=== PATIENT | female | born 1980 | race Caucasian/White ===

== ENCOUNTER 2016-04-29 20:04 | Emergency (ER) | payer OTHER ==
[2016-04-29 20:08] VITALS: TEMP 98.3; BMI 22.4
[2016-04-29 21:01] VITALS: BP 139/112; PULSE 58
--- NOTE | 2016-04-29 21:16 | PDOC ---
History of Present Illness - General Chief Complaint: Nausea/Vomiting Stated Complaint: PANIC ATTACK Time Seen by Provider: 04/29/16 20:09 History Source: Patient Exam Limitations: No Limitations - History of Present Illness Travel History: No Timing/Duration: reports: intermittent Quality: reports: cramping Abdominal Pain Onset Location: reports: RLQ, LLQ Pain Radiation: reports: no radiation Past History - Travel Traveled outside of the country in the last 30 days: No Close contact w/someone who was outside of country & ill: No - Past Medical History Allergies/Adverse Reactions: Allergies Allergy/AdvReac Type Severity Reaction Status Date / Time No Known Allergies Allergy Verified 04/29/16 20:05 Home Medications: Ambulatory Orders NK [No Known Home Medication] 04/29/16 - Psycho/Social/Smoking Cessation Hx Suicidal Ideation: No Smoking History: Never smoked Abd/GI Specific PMHX - Complaint Specific PMHX Colitis: No Diverticulitis: No Gall Bladder Disease: No GERD: No Review of Systems - Review of Systems Able to Perform ROS?: Yes Comments:: 04/29/16 21:11 CONSTITUTIONAL: Absent: fever, chills, diaphoresis, generalized weakness, malaise, loss of appetite HEENT: Absent: rhinorrhea, nasal congestion, throat pain, throat swelling, difficulty swallowing, mouth swelling, ear pain, eye pain, visual Changes CARDIOVASCULAR: Absent: chest pain, loss of consciousness, palpitations, irregular heart rate, peripheral edema RESPIRATORY: Absent: cough, shortness of breath, dyspnea with exertion, orthopnea, wheezing, stridor, hemoptysis GASTROINTESTINAL: generalized abd pain Absent: abdominal distension, nausea, vomiting, diarrhea, constipation, melena, hematochezia GENITOURINARY: Absent: dysuria, frequency, urgency, hesitancy, hematuria, flank pain, genital pain MUSCULOSKELETAL: Absent: myalgia, arthralgia, joint swelling SKIN: Absent: rash, itching, pallor HEMATOLOGIC/IMMUNOLOGIC: Absent: easy bleeding, easy bruising, lymphadenopathy, frequent infections ENDOCRINE: Absent: unexplained weight gain, unexplained weight loss, heat intolerance, cold intolerance NEUROLOGIC: Absent: headache, focal weakness or paresthesias, dizziness, unsteady gait, seizure, mental status changes, bladder or bowel incontinence PSYCHIATRIC: Absent: anxiety, depression, suicidal or homicidal ideation, hallucinations. Is the patient limited German proficient: No *Physical Exam - Vital Signs Last Vital Signs Temp Pulse Resp BP Pulse Ox 98.3 F 58 L 20 139/112 100 04/29/16 20:06 04/29/16 20:28 04/29/16 20:28 04/29/16 20:28 04/29/16 20:28 - Physical Exam Comments: 04/29/16 21:11 GENERAL: Well developed, well nourished. Awake and alert. No acute distress. HEENT: Normocephalic, atraumatic. PERRLA, EOMI. No conjunctival pallor. Sclera are non- icteric. Moist mucous membranes. Oropharynx is clear. NECK: Supple. Full ROM. No JVD. Carotid pulses 2+ and symmetric, without bruits. No thyromegaly. No lymphadenopathy. CARDIOVASCULAR: Regular rate and rhythm. No murmurs, rubs, or gallops. Distal pulses are 2+ and symmetric. PULMONARY: No evidence of respiratory distress. Lungs clear to auscultation bilaterally. No wheezing, rales or rhonchi. ABDOMINAL: generalized abd pain Soft. Non-distended. No rebound or guarding. No organomegaly. Normoactive bowel sounds. MUSCULOSKELETAL Normal range of motion at all joints. No bony deformities or tenderness. No CVA tenderness. EXTREMITIES: No cyanosis. No clubbing. No edema. No calf tenderness. SKIN: Warm and dry. Normal capillary refill. No rashes. No jaundice. NEUROLOGICAL: Alert, awake, appropriate. Cranial nerves 2-12 intact. No deficits to light touch and temperature in face, upper extremities and lower extremities. No motor deficits in the in face, upper extremities and lower extremities. Normoreflexic in the upper and lower extremities. Normal speech. Toes are down- going bilaterally. Gait is normal without ataxia. PSYCHIATRIC: Cooperative. Good eye contact. Appropriate mood and affect. ED Treatment Course - LABORATORY CBC & Chemistry Diagram: 04/29/16 21:23 04/29/16 21:23 Progress Note - Progress Note Progress Note: 36-year-old female presents to the emergency department complaining of lower abdominal pain with nausea /vomiting and anorexia 2 days. Pain is described as 8/10 dull nonradiating intermittent discomfort. There are no alleviating or exacerbating factors. Patient denies any fever, chills, chest pain, shortness of breath, urinary symptoms: Urgency/frequency/hesitancy, hematuria. LMP t8ruiam ago *DC/Admit/Observation/Transfer Diagnosis at time of Disposition: Ruptured ovarian cyst Abdominal pain Qualifiers: Abdominal location: right lower quadrant Qualified Code(s): R10.31 - Right lower quadrant pain - Discharge Dispostion Condition at time of disposition: Fair - Referrals Referrals: Luis Ocasio MD [Staff Physician] - - Patient Instructions Additional Instructions: Pelvic rest Tylenol/Motrin as needed for pain Increase fluids Follow up with your Set Builder or the one listed on your discharge Return to the ER for severe/persistent/worsening symptoms As explained, the images you had in the ER is just a preliminary report. The final report will be read and dictated within 24-48 hours Please understand that the preliminary reading might change after the final reading. Return back to the ER for severe/persistent or worseing syptoms. You want to be discharged even though you're still in pain. You do not want to stay for pain control. Therefore, Please return for severe/persistent or worsening symptoms
[2016-04-29 21:35] LABS: BASOPHIL 0.4 % (0-2.0); MCH 29.8 pg (25.7-33.7); MCHC 33.9 g/dl (32.0-36.0); MEAN PLT VOLUME 9.1 fl (7.5-11.1); NEUTROPHILS 88.5 % (42.8-82.8); PLATELET COUNT 193 K/MM3 (134-434); RDW 13.5 % (11.6-15.6); WHITE BLOOD COUNT 13.9 K/mm3 (4.0-10.0)
[2016-04-29 21:42] LABS: URINE APPEARANCE CLOUDY; URINE BILIRUBIN NEGATIVE (NEGATIVE); URINE COLOR LTYELLOW; URINE GLUCOSE (UA) 1+ (NEGATIVE); URINE KETONE 2+ (NEGATIVE); URINE LEUK ESTERASE NEGATIVE (NEGATIVE); URINE NITRITE NEGATIVE (NEGATIVE); URINE UROBILINOGEN NEGATIVE E.U./dl (0.2-1.0)
[2016-04-29 21:51] LABS: URINE BLOOD 1+ (NEGATIVE); URINE PROTEIN 1+ (NEGATIVE)
[2016-04-29 21:53] LABS: URINE BACTERIA MODERATE /hpf (NONE SEEN); URINE MUCUS RARE; URINE RBC 7 /hpf (0-3); URINE WBC 5 /hpf (3-5)
[2016-04-29 22:21] LABS: ALBUMIN 4.2 g/dl (3.4-5.0); ANION GAP 13 (8-16); CALCIUM 9.1 mg/dL (8.5-10.1); CO2 21 mmol/L (21-32); CREATININE 0.7 mg/dL (0.55-1.02); GLUCOSE,RANDOM 153 mg/dL (74-106); SGOT/AST 16 U/L (15-37); SGPT/ALT 20 U/L (12-78)
[2016-04-29 22:23] LABS: ALK PHOS 78 U/L (45-117); BILIRUBIN,TOTAL 0.6 mg/dL (0.2-1.0)
[2016-04-29] MEDS ORDERED: morphine CARPU-JECT 2 MG/1 ML DISP.SYRIN IVPUSH ONE (22:41)
[2016-04-29] MEDS ORDERED: morphine CARPU-JECT 2 MG/1 ML DISP.SYRIN ONE (22:44)
[2016-04-29] MEDS ORDERED: KETOROLAC TROMETHAMINE 30 MG/1 ML VIAL IVPUSH ONE (23:38)
[2016-04-30] MEDS ORDERED: KETOROLAC TROMETHAMINE 30 MG/1 ML VIAL ONE (00:15)
== END 2016-04-30 00:45 | disposition home or self-care (01) ==
LOC: JER 20:04
PROC: 3E033NZ Introduction of Analgesics, Hypnotics, Sedatives into Peripheral Vein, Percutaneous Approach (ICD-10-PCS; principal; 2016-04-29)
PROC: 3E0333Z Introduction of Anti-inflammatory into Peripheral Vein, Percutaneous Approach (ICD-10-PCS; 2016-04-29)
DX: N83.291 Other ovarian cyst, right side (principal); N28.1 Cyst of kidney, acquired
CPT/HCPCS: 36415; 74177-TC; 80053; 81003; 81015; 82150; 83690; 84703; 85025; 99284-25

== ENCOUNTER 2018-02-27 18:30 | Inpatient (IN) | payer OTHER ==
--- NOTE | 2018-02-27 18:43 | PDOC ---
Rapid Medical Evaluation Chief Complaint: Nausea/Vomiting Time Seen by Provider: 02/27/18 18:37 Medical Evaluation: Allergies Allergy/AdvReac Type Severity Reaction Status Date / Time No Known Allergies Allergy Verified 02/27/18 18:38 12 18:38 I have performed a brief in-person evaluation of this patient. The patient presents with a chief complaint of:gastric pain / burning/ x 1 week. no relief from PeptoBismol Pertinent physical exam findings: Pain with pal to abd. No rebound I have ordered the following: UA/ UCG The patient will proceed to the ED for further evaluation. 02/27/18 18:43 12 18:43 Discharge Disposition - Diagnosis Abdominal pain Qualifiers: Abdominal location: unspecified location Qualified Code(s): R10.9 - Unspecified abdominal pain - Referrals - Patient Instructions - Post Discharge Activity
[2018-02-27 18:55] LABS: URINE APPEARANCE SLCLOUDY; URINE BILIRUBIN NEGATIVE (<2.0 mg/dL); URINE COLOR YELLOW; URINE GLUCOSE (UA) NEGATIVE (NEGATIVE); URINE KETONE NEGATIVE (NEGATIVE); URINE LEUK ESTERASE NEGATIVE (NEGATIVE); URINE NITRITE NEGATIVE (NEGATIVE); URINE PROTEIN 1+ (NEGATIVE); URINE UROBILINOGEN 4.0 E.U/dl mg/dL (0.2-1.0)
[2018-02-27 18:58] LABS: EPI CELLS RARE /HPF (FEW); URINE MUCUS MANY
[2018-02-27] MEDS ORDERED: METOCLOPRAMIDE HCL INJECTION 10 MG/2 ML VIAL IVPB ONE (19:51)
[2018-02-27] MEDS ORDERED: SODIUM CHLORIDE 1,000 ML IV STA (19:51)
[2018-02-27] MEDS ORDERED: ACETAMINOPHEN 1000 MG/100 ML VIAL (NON FORMULARY) IVPB ONE (19:51)
--- NOTE | 2018-02-27 19:55 | PDOC ---
*Physical Exam - Vital Signs Last Vital Signs Temp Pulse Resp BP Pulse Ox 98.4 F 68 18 155/83 99 02/27/18 18:38 02/27/18 18:38 02/27/18 18:38 02/27/18 18:38 02/27/18 18:38 ED Treatment Course - ADDITIONAL ORDERS Additional order review: Laboratory Results 02/27/18 18:30 Urine Color Yellow Urine Appearance Slcloudy Urine pH 6.0 D Ur Specific [place] 1.017 Urine Protein 1+ H Urine Glucose (UA) Negative Urine Ketones Negative Urine Blood 1+ H Urine Nitrite Negative Urine Bilirubin Negative Urine Urobilinogen 4.0 e.u/dl H Ur Leukocyte Esterase Negative Urine WBC (Auto) 1 Urine RBC (Auto) 3 Ur Epithelial Cells Rare Urine Mucus Many Medical Decision Making - Medical Decision Making 02/27/18 19:54 Pt seen by Midlevel Provider under my direct supervision Pt interviewed and examined Ancillary studies reviewed I agree with plan as outlined by Midlevel Provider *DC/Admit/Observation/Transfer Diagnosis at time of Disposition: Abdominal pain Qualifiers: Abdominal location: unspecified location Qualified Code(s): R10.9 - Unspecified abdominal pain - Referrals - Patient Instructions - Post Discharge Activity
[2018-02-27] MEDS ORDERED: ACETAMINOPHEN INJECTION 100 ML IVPB ONE (20:47)
[2018-02-27] MEDS ORDERED: METOCLOPRAMIDE HCL INJECTION 10 MG/2 ML VIAL ONE (20:47)
--- NOTE | 2018-02-27 20:54 | PDOC ---
History of Present Illness - General Chief Complaint: Pain, Acute Stated Complaint: ABD PAIN Time Seen by Provider: 02/27/18 18:37 History Source: Patient Exam Limitations: No Limitations Past History - Past Medical History Allergies/Adverse Reactions: Allergies Allergy/AdvReac Type Severity Reaction Status Date / Time No Known Allergies Allergy Verified 02/27/18 18:38 Home Medications: Ambulatory Orders NK [No Known Home Medication] 04/29/16 COPD: No - Immunization History Immunization Up to Date: Yes - Suicide/Smoking/Psychosocial Hx Smoking History: Never smoked Hx Alcohol Use: Yes Drug/Substance Use Hx: No Abd/GI Specific PMHX - Complaint Specific PMHX Colitis: No Diverticulitis: No Gall Bladder Disease: No GERD: No *Physical Exam - Vital Signs Last Vital Signs Temp Pulse Resp BP Pulse Ox 98.4 F 68 18 155/83 99 02/27/18 18:38 12 18:38 12 18:38 02/27/18 18:38 12 18:38 - Physical Exam General Appearance: Yes: Apparent Distress, Other (Patient crying from discomfort) Respiratory/Chest: positive: Lungs Clear, Normal Breath Sounds. negative: Respiratory Distress Cardiovascular: positive: Regular Rhythm, Regular Rate, S1, S2. negative: Murmur Gastrointestinal/Abdominal: positive: Normal Bowel Sounds, Tender (Mild along epigastric site), Soft, Guarding (Mild guarding along upper abdomen). negative : Distended, Rebound Musculoskeletal: negative: CVA Tenderness Neurologic: positive: Fully Oriented, Alert, Normal Mood/Affect Moderate Sedation - Procedure Monitoring Vital Signs: Procedure Monitoring Vital Signs Temperature 98.4 F 02/27/18 18:38 Pulse Rate 68 02/27/18 18:38 Respiratory Rate 18 02/27/18 18:38 Blood Pressure 155/83 02/27/18 18:38 O2 Sat by Pulse Oximetry (%) 99 02/27/18 18:38 ED Treatment Course - LABORATORY CBC & Chemistry Diagram: 02/27/18 20:58 02/27/18 20:58 - ADDITIONAL ORDERS Additional order review: Laboratory Results 02/27/18 18:30 Urine Color Yellow Urine Appearance Slcloudy Urine pH 6.0 D Ur Specific [place] 1.017 Urine Protein 1+ H Urine Glucose (UA) Negative Urine Ketones Negative Urine Blood 1+ H Urine Nitrite Negative Urine Bilirubin Negative Urine Urobilinogen 4.0 e.u/dl H Ur Leukocyte Esterase Negative Urine WBC (Auto) 1 Urine RBC (Auto) 3 Ur Epithelial Cells Rare Urine Mucus Many - RADIOLOGY Radiology Studies Ordered: Category Date Time Status ABDOMEN & PELVIS CT WITH CONTR [CT] Stat CT Scan 02/27/18 19:57 Ordered Medical Decision Making - Medical Decision Making 38 y/o F hx of R ruptured ovarian cyst 2017, no other medical problems or abdominal surgeries, presents with burning epigastric pain x 5 days, worse the past 2 days along with NBNB emesis and watery diarrhea. Mentions she drank a lot of alcohol this past weekend (unable to quantify how much; states it was "3 drinks" in 1 day). Denies taking anything for pain. States she has been having this pain intermittently for the past 10 years and has been to other ERs for this, but the cause of pain is unclear. However, states pain has never been this bad. States usually she is given nausea medication and IV morphine which helps with the pain. Used to see GI years ago, states had endoscopy done, but that was a long time ago. Currently has no PCP or GI doctor. Denies fever, chills, sob, cp, hematemesis, black/bloody stools, urinary complaints. Consider gastritis vs pancreatitis; possibly cholecystitis though no RUQ tenderness on exam; possible drug seeking?, consider cyclical vomiting? gastroparesis? Labs: CBC, CMP, lipase, UA, UCG, IVF, IV Tylenol, Reglan, Pepcid, CT A/P, reassess 02/27/18 21:00 Labs reviewed and unremarkable CT A/P negative for any acute findings Attempted PO challenge but patient failed Patient admitted to medicine as obs under Dr. Rosa for further monitoring 02/28/18 01:13 *DC/Admit/Observation/Transfer Diagnosis at time of Disposition: Epigastric pain, Gastritis Abdominal pain Qualifiers: Abdominal location: unspecified location Qualified Code(s): R10.9 - Unspecified abdominal pain - Discharge Dispostion Condition at time of disposition: Stable Decision to Admit order: Yes - Referrals - Patient Instructions - Post Discharge Activity
[2018-02-27] MEDS ORDERED: FAMOTIDINE 20 MG/50 ML IVPB 20 MG/50 ML MG IVPB ONE ×2 (20:55→20:56)
[2018-02-27 21:05] LABS: BASO % 0.4 % (0-2.0); HEMATOCRIT 37.8 % (32.4-45.2); HEMOGLOBIN 13.5 GM/dL (10.7-15.3); LYMPH % 12.2 % (8-40); MCH 31.4 pg (25.7-33.7); MCHC 35.7 g/dl (32.0-36.0); MEAN CELL VOLUME 87.9 fl (80-96); MEAN PLT VOLUME 9.6 fl (7.5-11.1); MONO % 5.3 % (3.8-10.2); NEUT % 82.1 % (42.8-82.8); PLATELET COUNT 218 K/MM3 (134-434); RDW 13.7 % (11.6-15.6); WHITE BLOOD COUNT 9.4 K/mm3 (4.0-10.0)
[2018-02-27 21:37] LABS: ALBUMIN 4.5 g/dl (3.4-5.0); ALK PHOS 87 U/L (45-117); ANION GAP 13 MMOL/L (8-16); BILIRUBIN,TOTAL 0.7 mg/dL (0.2-1); BLOOD UREA NITROGEN 10 mg/dL (7-18); CALCIUM 9.4 mg/dL (8.5-10.1); CHLORIDE 104 mmol/L (98-107); CO2 25 mmol/L (21-32); CREATININE 0.8 mg/dL (0.55-1.3); GLUCOSE,RANDOM 154 mg/dL (74-106); LIPASE 69 U/L (73-393); POTASSIUM 3.8 mmol/L (3.5-5.1); SGOT/AST 18 U/L (15-37); SGPT/ALT 26 U/L (13-61); SODIUM 141 mmol/L (136-145); TOT PROT 7.7 g/dl (6.4-8.2)
[2018-02-27] MEDS ORDERED: morphine CARPU-JECT 2 MG/1 ML DISP.SYRIN IVPUSH ONE (21:46)
[2018-02-27] MEDS ORDERED: MORPHINE SULFATE 2 MG/ML VIAL ONE (21:48)
[2018-02-27] MEDS ORDERED: morphine CARPU-JECT 4 MG/1 ML DISP.SYRIN IVPUSH ONE (22:39)
[2018-02-27] MEDS ORDERED: morphine SULFATE 4 MG/ML VIAL ONE (22:40)
[2018-02-27] MEDS ORDERED: ONDANSETRON 4 MG/2 ML VIAL IVPUSH ONE (23:14)
[2018-02-27] MEDS ORDERED: ONDANSETRON 4 MG/2 ML VIAL ONE (23:46)
[2018-02-27] MEDS ORDERED: PANTOPRAZOLE SODIUM 40 MG VIAL IVPB ONE (23:57)
--- NOTE | 2018-02-28 00:42 | PN ---
Teaching Attending Note Name of Resident: Hilario Valencia ATTENDING PHYSICIAN STATEMENT I saw and evaluated the patient. I reviewed the resident's note and discussed the case with the resident. I agree with the resident's findings and plan as documented. SUBJECTIVE: Patient is a 38 year old woman with history of right ruptured ovarian cyst in 2017 and ?Panic attack who presents with burning epigastric pain for 5 days, worse the past 2 days along with NBNB emesis and watery diarrhea. Mentions she drank a lot of alcohol this past weekend (unable to quantify how much; states it was "3 drinks" in 1 day). Denies taking anything for pain. States she has been having this pain intermittently for the past 10 years and has been to other ERs for this, but the cause of pain is unclear. However, states pain has never been this bad. States usually she is given nausea medication and IV morphine which helps with the pain. Used to see GI years ago, states had endoscopy done, but that was a long time ago. Currently has no PCP or GI doctor. Denies fever, chills, sob, hematemesis, black/bloody stools, dysuria or frequency. No abnormal vaginal discharge. LMP - 2 weeks ago. Smokes regular marijuana and uses Tumeric; is on control pill irregularly. Single, has no children and works as an recreation technician at [employer]. OBJECTIVE: Alert and in pain Vital Signs Period Temp Pulse Resp BP Sys/Lal Pulse Ox Last 24 Hr 98.4 F-98.4 F 68-72 18-20 153-155/82-83 99-99 HEENT: No Jaundice, eye redness or discharge, PERRLA, EOMI. Normocephalic, atraumatic. External ears are normal and hearing is grossly intact. No nasal discharge. Neck: Supple, nontender. No palpable adenopathy or thyromegaly. No JVD Chest: Good effort. Clear to auscultation and percussion. Heart: Regular. No S3, rub or murmur Abdomen: Not distended, soft, tender upper abdomen (L>R) and no HSM. No rebound but has guarding. Normoactive bowel sounds. Ext: Peripheral pulses intact. No leg edema. Skin: Warm and dry. No petechiae, rash or ecchymosis. Neuro: Alert. Oriented x3. CN 2-12 grossly intact. Sensation grossly intact in all four extremities and DTR are symmetric. Home Medications Medication Instructions Recorded NK [No Known Home Medication] 04/29/16 Abnormal Lab Results 02/27/18 02/27/18 18:30 20:58 Random Glucose 154 H Lipase 69 L Urine Protein 1+ H Urine Blood 1+ H Urine Urobilinogen 4.0 e.u/dl H ASSESSMENT AND PLAN: 1. Abdominal pain - CT scan of abdomen with IV contrast was unrevealing. Gastritis/enteritis due to alcohol or a virus is likely culprit. Will get an EKG and treat with Zofran, IV morphine, IV LR at 100 ml/hour and consult GI for possible EGD. Needs work up for irritable bowel disease and inflammatory bowel disease. Check urine toxicology and HbA1c. Outpatient nephrology follow up for possible Medullary Sponge Kidney. Patient counseled to stop smoking marijuana. 2. Alcohol abuse - Implement [facility] alcohol withdrawal protocol, fall and aspiration precautions. Treat with thiamine and folic acid and monitor electrolytes (Ca,Mg,K,P). Public [facility] patient about abstaining from alcohol and refer to alcohol detox upon discharge. 3. DVT prophylaxis - Lovenox 40 mg SQ q 24 hours. 4. Advance directives - Full code
[2018-02-28] MEDS ORDERED: PANTOPRAZOLE SODIUM 40 MG VIAL ONE (00:48)
[2018-02-28] MEDS ORDERED: MORPHINE SULFATE 2 MG/ML VIAL IVPUSH PRN (02:51)
[2018-02-28 02:54] VITALS: BMI 21.9
--- NOTE | 2018-02-28 03:06 | HP ---
CHIEF COMPLAINT: PCP: none HISTORY OF PRESENT ILLNESS: The patient is a 38 year old female with PMHx of GERD and right ruptured ovarian cyst (2017, treated medically) presents to the ED c/o abdominal pain. The patient describes an 8/10, non-radiating, intermittent abdominal pain which started monday morning and has progressively worsened. The pain is worse in the epigastric region, is better on sitting up, and worse when lying down. On monday, the patient states that she had a total of 10 drinks (mixed liquor and beer) while celebrating her birthday. This abdominal pain is associated with frequent episodes of NBNB vomiting and nausea (patient unsure of frequency , but endorses 6 episodes of vomiting in ED). Patient states that last PO intake was 5 days ago. The patient had had several similar episodes over the last 10 years as well as sensitivity to acidic foods, but states that this episode is the worst and is refractory to OTC medications. She has been worked up in the past including a EGD, which she states showed "problems with the lining of my stomach" and was meant to follow up with w GI specialist, but never did. The patient's last episode was 2 years ago, where she was treated in [facility] ED w/ morphine and "nausea medication" which resolved her symptoms. Additionally, the patient endorses several episodes of nonbloody, watery diarrhea over the same period of time. The patient endorses eating from a food truck on Monday, where she had a spicy meal. Patient's LMP was 02/19 and was shorter and heavier then normal. Patient also endorses OCP use, but has not been consistently taking it. The patient denies chest pain, SOB, fever, chills, dysuria. ER course was notable for: (1) reglan, zofran, famotidine, morphine (2) CTAP negative (3) Recent Travel: none PAST MEDICAL HISTORY: see HPI PAST SURGICAL HISTORY: none Social History: Smoking: none Alcohol: occasional drinker Drugs: smokes 4 joints of natural marijuana daily Works as [email or web address] at a [employer] Family History: father passed in his 50's; had hx HTN, cirrhosis (ETOH abuse) and unknown cancer brother has similar stomach issues, though undiagnosed Allergies No Known Allergies Allergy (Verified 02/27/18 18:38) HOME MEDICATIONS: Home Medications Medication Instructions Recorded NK [No Known Home Medication] 04/29/16 REVIEW OF SYSTEMS CONSTITUTIONAL: Absent: fever, chills, diaphoresis, weight change HEENT: Absent: rhinorrhea, nasal congestion, throat pain, throat swelling, difficulty swallowing, mouth swelling, ear pain, eye pain, visual changes CARDIOVASCULAR: Absent: chest pain, syncope, palpitations, irregular heart rate, lightheadedness , peripheral edema RESPIRATORY: Absent: cough, shortness of breath, dyspnea with exertion, orthopnea, wheezing, stridor, hemoptysis GASTROINTESTINAL: Absent: abdominal distension, constipation, melena, hematochezia GENITOURINARY: Absent: dysuria, frequency, urgency, hesitancy, hematuria, flank pain, genital pain MUSCULOSKELETAL: Absent: myalgia, arthralgia, joint swelling, back pain, neck pain SKIN: Absent: rash, itching, pallor HEMATOLOGIC/IMMUNOLOGIC: Absent: easy bleeding, easy bruising, lymphadenopathy, frequent infections ENDOCRINE: Absent: unexplained weight gain, unexplained weight loss, heat intolerance, cold intolerance NEUROLOGIC: Absent: headache, focal weakness or paresthesias, dizziness, unsteady gait, seizure, mental status changes, bladder or bowel incontinence PSYCHIATRIC: Absent: anxiety, depression, suicidal or homicidal ideation, hallucinations. PHYSICAL EXAMINATION Vital Signs - 24 hr 02/27/18 02/27/18 02/28/18 18:38 19:30 01:15 Temperature 98.4 F 98.4 F 98.9 F Pulse Rate 68 88 Pulse Rate [ 72 Left Radial] Respiratory 18 20 18 Rate Blood Pressure 155/83 167/69 Blood Pressure 153/82 [Left Arm] O2 Sat by Pulse 99 99 Oximetry (%) 02/28/18 02/28/18 01:50 01:56 Temperature Pulse Rate Pulse Rate [ 59 L Left Radial] Respiratory 16 Rate Blood Pressure Blood Pressure 152/89 [Left Arm] O2 Sat by Pulse 100 99 Oximetry (%) GENERAL: Awake, alert, and fully oriented, in moderate distress and appears uncomfortable HEAD: Normal with no signs of trauma. EYES: Pupils equal, round and reactive to light, extraocular movements intact, sclera anicteric, conjunctiva clear. No lid lag. LUNGS: Breath sounds equal, clear to auscultation bilaterally. No wheezes, and no crackles. No accessory muscle use. HEART: Regular rate and rhythm, normal S1 and S2 without murmur, rub or gallop. ABDOMEN: Soft, not distended, hyperactive bowel sounds, no rebound, no masses. Patient exquisitely tender to palpation all across the abdomen with the pain being worse in the upper quadrants and epigastrium. No hepatomegaly or splenomegaly. No CVA tenderness LOWER EXTREMITIES: 2+ pulses, warm, well-perfused. No calf tenderness. No peripheral edema. NEUROLOGICAL: Cranial nerves II-X intact. Normal speech. Strength 5/5 b/l. Gait steady, but stooped 2/2 pain. PSYCHIATRIC: Cooperative. Good eye contact. Appropriate mood and affect. SKIN: Warm, dry, normal turgor, no rashes or lesions noted, normal capillary refill. Laboratory Results - last 24 hr 02/27/18 02/27/18 02/27/18 18:30 20:58 20:58 WBC 9.4 RBC 4.30 Hgb 13.5 Hct 37.8 MCV 87.9 MCH 31.4 MCHC 35.7 RDW 13.7 Plt Count 218 MPV 9.6 Absolute Neuts (auto) 7.7 Neutrophils % 82.1 Lymphocytes % 12.2 D Monocytes % 5.3 Eosinophils % 0.0 Basophils % 0.4 Nucleated RBC % 0 Sodium Potassium Chloride Carbon Dioxide Anion Gap BUN Creatinine Creat Clearance w eGFR Random Glucose Calcium Total Bilirubin AST ALT Alkaline Phosphatase Total Protein Albumin Lipase Beta HCG, Quant Cancelled Urine Color Yellow Urine Appearance Slcloudy Urine pH 6.0 D Ur Specific [place] 1.017 Urine Protein 1+ H Urine Glucose (UA) Negative Urine Ketones Negative Urine Blood 1+ H Urine Nitrite Negative Urine Bilirubin Negative Urine Urobilinogen 4.0 e.u/dl H Ur Leukocyte Esterase Negative Urine WBC (Auto) 1 Urine RBC (Auto) 3 Ur Epithelial Cells Rare Urine Mucus Many 02/27/18 20:58 WBC RBC Hgb Hct MCV MCH MCHC RDW Plt Count MPV Absolute Neuts (auto) Neutrophils % Lymphocytes % Monocytes % Eosinophils % Basophils % Nucleated RBC % Sodium 141 Potassium 3.8 Chloride 104 Carbon Dioxide 25 Anion Gap 13 BUN 10 Creatinine 0.8 Creat Clearance w eGFR > 60 Random Glucose 154 H Calcium 9.4 Total Bilirubin 0.7 AST 18 ALT 26 Alkaline Phosphatase 87 Total Protein 7.7 Albumin 4.5 Lipase 69 L Beta HCG, Quant < 1.0 Urine Color Urine Appearance Urine pH Ur Specific [place] Urine Protein Urine Glucose (UA) Urine Ketones Urine Blood Urine Nitrite Urine Bilirubin Urine Urobilinogen Ur Leukocyte Esterase Urine WBC (Auto) Urine RBC (Auto) Ur Epithelial Cells Urine Mucus ASSESSMENT/PLAN: The patient is a 38 yo f w/ PMH GERD who comes into the ED c/o a 5 day history of epigastric pain, n/v and diarrhea. #abd pain, n/v, diarrhea likely 2/2 alcoholic gastritis r/o PUD -lipase negative -CTAP negative for acute pathology -s/p reglan, zofran, famotidine in ED -morphine 2mg q4h PRN -Zofran 4mg q6h PRN nausea; QTc 455 -GI consult for possible EGD -protonix 40mg BID -LR@100 -utox -clear liquid diet; advance as tolerated #FEN -LR@100 -lytes WNL -clears due to nausea, advance as tolerated #prophy -Lovenox 40mg SQ daily #Dispo -admit med surg Visit type - Emergency Visit Emergency Visit: Yes ED Registration Date: 02/28/18 Care time: The patient presented to the Emergency Department on the above date and was hospitalized for further evaluation of their emergent condition. - New Patient This patient is new to me today: Yes Date on this admission: 02/28/18 - Critical Care Critical Care patient: No
[2018-02-28] MEDS: LACTATED RINGERS SOLUTION 1,000 ML/1,000 ML INFUS.BAG IV SCH ×2 (03:43→14:43)
[2018-02-28] MEDS ORDERED: ONDANSETRON 4 MG/2 ML VIAL IVPUSH PRN (05:19)
[2018-02-28 07:31] LABS: HEMATOCRIT 33.2 % (32.4-45.2); HEMOGLOBIN 11.1 GM/dL (10.7-15.3); MCH 29.8 pg (25.7-33.7); MCHC 33.5 g/dl (32.0-36.0); MEAN PLT VOLUME 9.5 fl (7.5-11.1); PLATELET COUNT 164 K/MM3 (134-434); RBC 3.74 M/mm3 (3.60-5.2); RDW 13.7 % (11.6-15.6)
[2018-02-28 07:43] LABS: ANION GAP 9 MMOL/L (8-16); BLOOD UREA NITROGEN 7 mg/dL (7-18); CALCIUM 8.5 mg/dL (8.5-10.1); CHLORIDE 109 mmol/L (98-107); CO2 26 mmol/L (21-32); CREATININE 0.6 mg/dL (0.55-1.3); GLUCOSE,RANDOM 102 mg/dL (74-106); MAGNESIUM 2.2 mg/dL (1.8-2.4); POTASSIUM 3.8 mmol/L (3.5-5.1); SODIUM 143 mmol/L (136-145)
[2018-02-28] MEDS ORDERED: MAG HYDROX/AL HYDROX/SIMETH 30 ML UNIT-DOSE CUP PO PRN (08:24)
[2018-02-28 08:30] LABS: INR 1.06 (0.83-1.09); PROTHROMBIN TIME (PATIENT) 12.5 SEC (9.7-13.0)
[2018-02-28 08:34] LABS: ACTIVATED PTT 24.2 SECONDS (25.2-36.5)
[2018-02-28] MEDS ORDERED: PANTOPRAZOLE SODIUM 40 MG VIAL IVPUSH SCH (10:00)
[2018-02-28] MEDS ORDERED: ENOXAPARIN NA (PORCINE) 40 MG/0.4 ML DISP.SYRIN SQ SCH (10:00)
[2018-02-28] MEDS ORDERED: SUCRALFATE 1 GM TABLET (FP) PO SCH (10:00)
--- NOTE | 2018-02-28 14:19 | CON.GI ---
Consult Consult Specialty:: Gastroenterology - History of Present Illness Chief Complaint: Epigastric pain History of Present Illness: 38yo female h/o ruptured ovarian cyst (2017) presents with burning epigastric pain x 5 days with associated nausea/vomiting and diarrhea. Pt states pain started mostly in epigastrium with burning sensation, approximately 5 days ago gradually worsening by Monday and prompting ED evaluation. Some radiation towards left side, denies radiation to the back. She reports associated nausea/ vomiting, and loose stool 3-4x daily, no blood. She reports not eating well and had been drinking over the past week as it was her birthday, having 2-3 drinks/ day. Uses marijuana daily. Reports similar symptoms intermittently over the past few years, none recently, by GI more than 8-10 years ago, states she had EGD and told she had ?gastritis (details unclear). Denies heartburn, dysphagia or weight loss. Currently pt feeling much better, pain nearly resolved, mild burning sensation. Mild nausea, no further vomiting. Moved bowel yesterday, mostly formed, no blood , denies further diarrhea. - History Source History Provided By: Patient - Past Medical History ...: No - Alcohol/Substance Use Hx Alcohol Use: Yes - Smoking History Smoking history: Never smoked Have you smoked in the past 12 months: Yes Aproximately how many cigarettes per day: 1 Home Medications - Allergies Allergies/Adverse Reactions: Allergies Allergy/AdvReac Type Severity Reaction Status Date / Time No Known Allergies Allergy Verified 02/27/18 18:38 - Home Medications Home Medications: Ambulatory Orders NK [No Known Home Medication] 04/29/16 Review of Systems - Review of Systems Constitutional: reports: No Symptoms Cardiovascular: reports: No Symptoms Respiratory: reports: No Symptoms Gastrointestinal: reports: Abdominal Pain (See HPI for additional details) Neurological: reports: No Symptoms Physical Exam-GI Vital Signs: Vital Signs Temperature 98.4 F 02/28/18 06:00 Pulse Rate 59 L 02/28/18 06:00 Respiratory Rate 18 02/28/18 06:00 Blood Pressure 117/76 02/28/18 06:00 O2 Sat by Pulse Oximetry (%) 99 02/28/18 01:56 Constitutional: Yes: Well Nourished, No Distress, Calm Eyes: Yes: WNL HENT: Yes: WNL Cardiovascular: Yes: WNL, Regular Rate and Rhythm Respiratory: Yes: WNL, Regular, CTA Bilaterally Gastrointestinal Inspection: Yes: WNL (Abd soft, mildly tender in epigastrium on palpation, nondistended) Edema: No Labs: CBC, BMP 02/28/18 06:20 02/28/18 06:20 INR, PTT INR 1.06 (0.83-1.09) 02/28/18 06:20 Imaging - Results Chest X-ray: Report Reviewed, Image Reviewed Cat Scan: Report Reviewed, Image Reviewed Problem List - Problems (1) Abdominal pain Code(s): R10.9 - UNSPECIFIED ABDOMINAL PAIN Qualifiers: Abdominal location: epigastric Qualified Code(s): R10.13 - Epigastric pain Assessment/Plan 38 yo female h/o ruptured ovarian cyst presenting with epigastric pain, n/v, and diarrhea x 5 days. Labs unremarkable and CT without acute GI pathology. No evidence of pancreatitis. No anemia, LFTs normal. Possible etiologies include GERD vs gastritis vs cannabis hypermesis syndrome vs self limiting gastroenteritis vs functional. Clinically improved, symptoms nearly resolved with conservative management. -Recommend PPI daily -Avoid NSAIDs -Diet as tolerated -If further loose stool, please check C difficile and ova/parasites (although appears improved) -Check stool H pylori Ag -Discussed cannabis cessation -Further recommendations per primary team and renal re. possible medullary sponge kidney. -Pending course and if symptoms do not continue to improve would consider EGD at that time for further evaluation
[2018-02-28 14:34] VITALS: BP 125/56; PULSE 61; TEMP 98
--- NOTE | 2018-02-28 14:57 | PN ---
Teaching Attending Note Name of Resident: Larry Portillo ATTENDING PHYSICIAN STATEMENT I saw and evaluated the patient. I reviewed the resident's note and discussed the case with the resident. I agree with the resident's findings and plan as documented with exceptions below. SUBJECTIVE: Patient seen and examined. Symptoms resolved, tolerating diet. OBJECTIVE: Vital Signs Period Temp Pulse Resp BP Sys/Lal Pulse Ox Last 24 Hr 98 F-98.9 F 59-88 16-20 117-167/56-89 99-100 Intake & Output 02/25/18 02/26/18 02/27/18 02/28/18 23:59 23:59 23:59 23:59 Intake Total 1000 Balance 1000 Weight 115 lb 112 lb 2 oz General: sitting in bed in no acute distress Chest: CTAB, no rales or wheezing Abdomen:Soft, NT, ND, positive bowel sounds Extremities: no edema Home Medications Medication Instructions Recorded Pantoprazole Sodium [Protonix] 40 mg PO DAILY 10 Days #10 02/28/18 tablet. Laboratory Results - last 24 hr 02/27/18 02/27/18 02/27/18 18:30 20:58 20:58 WBC 9.4 RBC 4.30 Hgb 13.5 Hct 37.8 MCV 87.9 MCH 31.4 MCHC 35.7 RDW 13.7 Plt Count 218 MPV 9.6 Absolute Neuts (auto) 7.7 Neutrophils % 82.1 Lymphocytes % 12.2 D Monocytes % 5.3 Eosinophils % 0.0 Basophils % 0.4 Nucleated RBC % 0 PT with INR INR PTT (Actin FS) Sodium Potassium Chloride Carbon Dioxide Anion Gap BUN Creatinine Creat Clearance w eGFR Random Glucose Hemoglobin A1c % Calcium Phosphorus Magnesium Total Bilirubin AST ALT Alkaline Phosphatase Total Protein Albumin Lipase Beta HCG, Quant Cancelled Urine Color Yellow Urine Appearance Slcloudy Urine pH 6.0 D Ur Specific [place] 1.017 Urine Protein 1+ H Urine Glucose (UA) Negative Urine Ketones Negative Urine Blood 1+ H Urine Nitrite Negative Urine Bilirubin Negative Urine Urobilinogen 4.0 e.u/dl H Ur Leukocyte Esterase Negative Urine WBC (Auto) 1 Urine RBC (Auto) 3 Ur Epithelial Cells Rare Urine Mucus Many 02/27/18 02/28/18 02/28/18 20:58 06:20 06:20 WBC 8.0 RBC 3.74 Hgb 11.1 Hct 33.2 MCV 89.0 MCH 29.8 MCHC 33.5 RDW 13.7 Plt Count 164 D MPV 9.5 Absolute Neuts (auto) Neutrophils % Lymphocytes % Monocytes % Eosinophils % Basophils % Nucleated RBC % PT with INR 12.50 INR 1.06 PTT (Actin FS) 24.2 L Sodium 141 Potassium 3.8 Chloride 104 Carbon Dioxide 25 Anion Gap 13 BUN 10 Creatinine 0.8 Creat Clearance w eGFR > 60 Random Glucose 154 H Hemoglobin A1c % Calcium 9.4 Phosphorus Magnesium Total Bilirubin 0.7 AST 18 ALT 26 Alkaline Phosphatase 87 Total Protein 7.7 Albumin 4.5 Lipase 69 L Beta HCG, Quant < 1.0 Urine Color Urine Appearance Urine pH Ur Specific [place] Urine Protein Urine Glucose (UA) Urine Ketones Urine Blood Urine Nitrite Urine Bilirubin Urine Urobilinogen Ur Leukocyte Esterase Urine WBC (Auto) Urine RBC (Auto) Ur Epithelial Cells Urine Mucus 02/28/18 02/28/18 06:20 06:20 WBC RBC Hgb Hct MCV MCH MCHC RDW Plt Count MPV Absolute Neuts (auto) Neutrophils % Lymphocytes % Monocytes % Eosinophils % Basophils % Nucleated RBC % PT with INR INR PTT (Actin FS) Sodium 143 Potassium 3.8 Chloride 109 H Carbon Dioxide 26 Anion Gap 9 BUN 7 Creatinine 0.6 Creat Clearance w eGFR > 60 Random Glucose 102 Hemoglobin A1c % 4.9 Calcium 8.5 Phosphorus 5.0 H Magnesium 2.2 Total Bilirubin AST ALT Alkaline Phosphatase Total Protein Albumin Lipase Beta HCG, Quant Urine Color Urine Appearance Urine pH Ur Specific [place] Urine Protein Urine Glucose (UA) Urine Ketones Urine Blood Urine Nitrite Urine Bilirubin Urine Urobilinogen Ur Leukocyte Esterase Urine WBC (Auto) Urine RBC (Auto) Ur Epithelial Cells Urine Mucus ASSESSMENT AND PLAN: 38 yof with PMHx of ETOH/cannabis use, GERD, ruptured ovarian cyst admitted with nausea, vomitting and epigastric pain. -Nausea/Vomiting/epigastric pain, cyclical vomitting syndrome vs PUD vs H. Pylori gastritis -GERD -ETOH/cannabis use -Medullary sponge kidney -H/o ruptured ovarian cyst Plan: Symptoms resolved. Tolerating diet. GI input appreciated. PPI trial. Outpatient follow up GI H.pylori testing and additional work up. Counseled on alcohol/cannabis cessation. Discussed incidental finding of medullary sponge kidney with patient and need for outpatient PCP/Nephrology monitoring. Patient relays understanding and agrees to comply. D/c home today Plan discussed with patient in detail, all questions answered.
--- NOTE | 2018-02-28 15:45 | EKG ---
Test Reason : Blood Pressure : / mmHG Vent. Rate : 063 BPM Atrial Rate : 063 BPM P-R Int : 130 ms QRS Dur : 084 ms QT Int : 402 ms P-R-T Axes : 050 073 067 degrees QTc Int : 411 ms NORMAL SINUS RHYTHM NORMAL ECG NO PREVIOUS ECGS AVAILABLE Confirmed by DEIDRA MESA MD ([id number]) on 02/28/2018 3:45:12 PM Referred By: NUSRAT GUPTA Confirmed By:DEIDRA MESA MD
--- NOTE | 2018-02-28 18:15 | DS ---
Physical Exam: SUBJECTIVE: Patient seen and examined at bedside this am. Resting comfortably in bed. No acute events overnight. OBJECTIVE: Vital Signs Period Temp Pulse Resp BP Sys/Lal Pulse Ox Last 24 Hr 98 F-98.9 F 59-88 16-20 117-167/56-89 99-100 PHYSICAL EXAM GENERAL: AAOx3, NAD HEAD: NC/AT EYES: EOMI No scleral icterus appreciated ENT: MMM LUNGS:CTA B/L No weezing rhonchi or rales HEART: RRR S1S2 No MRG ABDOMEN: Mid-Epigastric pain non-radiating EXTREMITIES: 2+ pulses, warm, well-perfused, no edema. NEUROLOGICAL: No neuro deficits appreciated PSYCH: Normal mood, normal affect. SKIN: No Rashes or lesions appreciated LABS Laboratory Results - last 24 hr 02/27/18 02/27/18 02/27/18 18:30 20:58 20:58 WBC 9.4 RBC 4.30 Hgb 13.5 Hct 37.8 MCV 87.9 MCH 31.4 MCHC 35.7 RDW 13.7 Plt Count 218 MPV 9.6 Absolute Neuts (auto) 7.7 Neutrophils % 82.1 Lymphocytes % 12.2 D Monocytes % 5.3 Eosinophils % 0.0 Basophils % 0.4 Nucleated RBC % 0 PT with INR INR PTT (Actin FS) Sodium Potassium Chloride Carbon Dioxide Anion Gap BUN Creatinine Creat Clearance w eGFR Random Glucose Hemoglobin A1c % Calcium Phosphorus Magnesium Total Bilirubin AST ALT Alkaline Phosphatase Total Protein Albumin Lipase Beta HCG, Quant Cancelled Urine Color Yellow Urine Appearance Slcloudy Urine pH 6.0 D Ur Specific [place] 1.017 Urine Protein 1+ H Urine Glucose (UA) Negative Urine Ketones Negative Urine Blood 1+ H Urine Nitrite Negative Urine Bilirubin Negative Urine Urobilinogen 4.0 e.u/dl H Ur Leukocyte Esterase Negative Urine WBC (Auto) 1 Urine RBC (Auto) 3 Ur Epithelial Cells Rare Urine Mucus Many 02/27/18 02/28/18 02/28/18 20:58 06:20 06:20 WBC 8.0 RBC 3.74 Hgb 11.1 Hct 33.2 MCV 89.0 MCH 29.8 MCHC 33.5 RDW 13.7 Plt Count 164 D MPV 9.5 Absolute Neuts (auto) Neutrophils % Lymphocytes % Monocytes % Eosinophils % Basophils % Nucleated RBC % PT with INR 12.50 INR 1.06 PTT (Actin FS) 24.2 L Sodium 141 Potassium 3.8 Chloride 104 Carbon Dioxide 25 Anion Gap 13 BUN 10 Creatinine 0.8 Creat Clearance w eGFR > 60 Random Glucose 154 H Hemoglobin A1c % Calcium 9.4 Phosphorus Magnesium Total Bilirubin 0.7 AST 18 ALT 26 Alkaline Phosphatase 87 Total Protein 7.7 Albumin 4.5 Lipase 69 L Beta HCG, Quant < 1.0 Urine Color Urine Appearance Urine pH Ur Specific [place] Urine Protein Urine Glucose (UA) Urine Ketones Urine Blood Urine Nitrite Urine Bilirubin Urine Urobilinogen Ur Leukocyte Esterase Urine WBC (Auto) Urine RBC (Auto) Ur Epithelial Cells Urine Mucus 02/28/18 02/28/18 06:20 06:20 WBC RBC Hgb Hct MCV MCH MCHC RDW Plt Count MPV Absolute Neuts (auto) Neutrophils % Lymphocytes % Monocytes % Eosinophils % Basophils % Nucleated RBC % PT with INR INR PTT (Actin FS) Sodium 143 Potassium 3.8 Chloride 109 H Carbon Dioxide 26 Anion Gap 9 BUN 7 Creatinine 0.6 Creat Clearance w eGFR > 60 Random Glucose 102 Hemoglobin A1c % 4.9 Calcium 8.5 Phosphorus 5.0 H Magnesium 2.2 Total Bilirubin AST ALT Alkaline Phosphatase Total Protein Albumin Lipase Beta HCG, Quant Urine Color Urine Appearance Urine pH Ur Specific [place] Urine Protein Urine Glucose (UA) Urine Ketones Urine Blood Urine Nitrite Urine Bilirubin Urine Urobilinogen Ur Leukocyte Esterase Urine WBC (Auto) Urine RBC (Auto) Ur Epithelial Cells Urine Mucus HOSPITAL COURSE: Date of Admission:02/28/18 38 year old female with PMHx of GERD and right ruptured ovarian cyst (2017, treated medically) presented to [facility] c/o abdominal pain, nausea, and vomiting. Pt did not have a white count. Labs were unremarkable. No evidence of pancreatitis. No anemia, LFTs were normal Pt underwent a CTAP which did not reveal any acute pathology though did show Medullary Sponge Kidney. Please see report for details. Pt was treated conservatively and discharged. Informed to follow up with Ron for further testing and with Nephrology for MSK. Sent home on protonix 40 mg daily. Date of Discharge: 02/28/18 Minutes to complete discharge: 35 Discharge Summary Reason For Visit: ABDOMINAL PAIN Condition: Stable - Instructions Diet, Activity, Other Instructions: you presented to the hospital due to abdominal pain nausea and vomiting due to Alcohol use and Marijuana use You symptoms have improved Please avoid using alcohol or marijuana products as it will worsen your symptoms. You will be send home with Protonix oral 40 mg daily for 10 days. 4 weeks after you finish protonix you need to be tested for H pylori with your primary care physician. Please take your meds as prescribed. you were found to have something called medullar sponge kidney please follow up with nephrology Dr Jr Narayan within one week. Strongly advise alcohol and marihuana cessation. Advise small meals at frequent intervals, avoid eating 3 hours before bed, keep head end of bed elevated. Please follow up with Dr Conde primary care physician within one week. (can call medical clinic for follow up Appointment ) if you develop fever, chills, nausea , vomiting or worsening abdominal pain or any new concerns, please call 911 or return to hospital. Referrals: Emanuel Conde MD [Staff Physician] - 1 Week Sylvain Norris MD [Staff Physician] - 2 Weeks Dominic Saldana MD [Staff Physician] - 3 Weeks Disposition: HOME - Home Medications Comprehensive Discharge Medication List: Ambulatory Orders Pantoprazole Sodium [Protonix] 40 mg PO DAILY 10 Days #10 tablet. 02/28/18 This patient is new to me today: Yes Date on this admission: 02/28/18 Emergency Visit: Yes ED Registration Date: 02/28/18 Care time: The patient presented to the Emergency Department on the above date and was hospitalized for further evaluation of their emergent condition. Critical Care patient: No - Discharge Referral Referred to [facility] No
--- NOTE | 2018-05-11 20:32 | EKG ---
Test Reason : Blood Pressure : / mmHG Vent. Rate : 070 BPM Atrial Rate : 070 BPM P-R Int : 128 ms QRS Dur : 082 ms QT Int : 422 ms P-R-T Axes : 052 071 074 degrees QTc Int : 455 ms NORMAL SINUS RHYTHM NORMAL ECG NO PREVIOUS ECGS AVAILABLE Confirmed by MOSHE VENEGAS, DEIDRA ([id number]) on 05/11/2018 8:31:39 PM Referred By: Confirmed By:DEIDRA MESA MD
== END 2018-02-28 17:09 | disposition home or self-care (01) | DRG 392 ==
LOC: JER 18:30 → JERBED 02-28 01:15 → J6S 02-28 02:37
PROVIDERS: ADMIT Internal Medicine; ATTEND Hospitalist
DX: R10.13 Epigastric pain (principal); K21.9 Gastro-esophageal reflux disease without esophagitis; N83.201 Unspecified ovarian cyst, right side; F10.10 Alcohol abuse, uncomplicated; F12.10 Cannabis abuse, uncomplicated
CPT/HCPCS: 36415; 74177-TC; 80048; 80053; 81003; 81015; 83036; 83690; 83735; 84100; 84702; 85025; 85027; 85610; 85730; 93005; 93010; 99285-25; J0131; J7030